=== PATIENT | male | born 1980 | race Caucasian/White ===

== ENCOUNTER 2024-11-26 06:31 | Observation (INO) ==
--- NOTE | 2024-08-03 11:23 | PAT Medication Instructions ---
Medication Instructions Date of Service August 03, 2024 Home Medications Medication Instructions Recorded budesonide-formoterol HFA 80 2 puff inhalation BID #10.2 grams 10/28/23 mcg-4.5 mcg/actuation aerosol inhaler (Symbicort) ezetimibe 10 mg tablet (Zetia) 10 mg PO DAILY #90 tabs 10/28/23 ddnfecok-hvevuqnaj-xciigswrr 3.5 4 drp otic (ear) Q8H 10 days #10 mL 10/29/23 mg-10,000 unit/mL-1 % ear drops,susp metoprolol succinate 50 mg 50 mg PO BID #180 tabs 03/15/24 tablet,extended release 24 hr azelastine 137 mcg (0.1 %) nasal 2 spray intranasal BID #30 mL 06/07/24 spray fluticasone propionate 50 2 spray intranasal DAILY Allergic 06/07/24 mcg/actuation nasal Rhinitis #16 grams spray,suspension ipratropium bromide 21 mcg (0.03 See Rx Instructions intranasal TID 06/07/24 %) nasal spray PRN allergy symptoms #30 mL tadalafil 5 mg tablet (Cialis) See Rx Instructions PO DAILY PRN 06/23/24 sexual activity #60 tabs cyclobenzaprine 10 mg tablet 10 mg PO TID PRN muscle spasm #90 07/26/24 tabs Medication List: cetirizine 10 mg capsule (Zyrtec) 10 mg PO DAILY PRN Allergy Symptoms loratadine-pseudoephedrine ER 10 mg-240 mg tablet,extended [id number] (Claritin-D 24 Hour) 1 tab PO QAM fexofenadine-pseudoephedrine ER 180 mg-240 mg tablet,ext.release 24 hr (Vivian- D 24 Hour) 1 tab PO QAM budesonide-formoterol HFA 80 mcg-4.5 mcg/actuation aerosol inhaler (Symbicort) 2 puff inhalation BID ezetimibe 10 mg tablet (Zetia) 10 mg PO DAILY eirburiv-odhqplrup-pmukaohzw 3.5 mg-10,000 unit/mL-1 % ear drops,susp 4 drp otic (ear) Q8H metoprolol succinate 50 mg tablet,extended release 24 hr 50 mg PO BID azelastine 137 mcg (0.1 %) nasal spray 2 spray intranasal BID fluticasone propionate 50 mcg/actuation nasal spray,suspension 2 spray intranasal DAILY Allergic Rhinitis ipratropium bromide 21 mcg (0.03 %) nasal spray See Rx Instructions intranasal TID PRN allergy symptoms tadalafil 5 mg tablet (Cialis) See Rx Instructions PO DAILY PRN sexual activity cyclobenzaprine 10 mg tablet 10 mg PO TID PRN muscle spasm ciprofloxacin 0.3 %-dexamethasone 0.1 % ear drops,suspension 4 drp otic (ear) BID PRN ear infections escitalopram oxalate 5 mg tablet 5 mg PO HS lisinopril 20 mg tablet 20 mg PO QAM montelukast 10 mg tablet 10 mg PO HS MEDICATION INSTRUCTIONS: Continue as directed ciprofloxacin 0.3 %-dexamethasone 0.1 % ear drops,suspension 4 drp otic (ear) BID PRN ear infections azelastine 137 mcg (0.1 %) nasal spray 2 spray intranasal BID fluticasone propionate 50 mcg/actuation nasal spray,suspension 2 spray intranasal DAILY Allergic Rhinitis qsftaman-qiqclyvwd-yiotnrgtx 3.5 mg-10,000 unit/mL-1 % ear drops,susp 4 drp otic (ear) Q8H budesonide-formoterol HFA 80 mcg-4.5 mcg/actuation aerosol inhaler (Symbicort) 2 puff inhalation BID ipratropium bromide 21 mcg (0.03 %) nasal spray See Rx Instructions intranasal TID PRN allergy symptoms DO NOT take the morning of surgery lisinopril 20 mg tablet 20 mg PO QAM cetirizine 10 mg capsule (Zyrtec) 10 mg PO DAILY PRN Allergy Symptoms loratadine-pseudoephedrine ER 10 mg-240 mg tablet,extended [id number] (Claritin-D 24 Hour) 1 tab PO QAM fexofenadine-pseudoephedrine ER 180 mg-240 mg tablet,ext.release 24 hr (Vivian- D 24 Hour) 1 tab PO QAM tadalafil 5 mg tablet (Cialis) See Rx Instructions PO DAILY PRN sexual activity Take morning of surgery With a small sip of water, OTHERWISE NOTHING TO EAT OR DRINK AFTER MIDNIGHT: metoprolol succinate 50 mg tablet,extended release 24 hr 50 mg PO BID cyclobenzaprine 10 mg tablet 10 mg PO TID PRN muscle spasm ezetimibe 10 mg tablet (Zetia) 10 mg PO DAILY Take evening before surgery escitalopram oxalate 5 mg tablet 5 mg PO HS montelukast 10 mg tablet 10 mg PO HS metoprolol succinate 50 mg tablet,extended release 24 hr 50 mg PO BID cyclobenzaprine 10 mg tablet 10 mg PO TID PRN muscle spasm Other Notes If you have any questions please call us at [phone] or [phone] or [phone] or [phone]
--- NOTE | 2024-08-16 14:11 | Anesthesiology Consultation ---
Date of Service August 16, 2024 Assessment & Plan (1) Encounter for pre-operative examination: malignant hyperthermia OR made aware of need for MH precautions. - Outpatient joint assessment: Patient is currently scheduled for inpatient pathway. If re-evaluated and patient/surgeon requests outpatient pathway, patient is not a candidate for outpatient joint program. Chart Review Chart Review: Acceptable Risk for Surgery and Patient seen in Pre Admission Testing Teaching & Discussion Pre-Anesthesia Teaching/Discussion Notes: Instructed NPO after midnight before surgery, except medications with 15 cc of water. Medication instructions provided according to the PAT guidelines. History Surgery Operation Date: 09/13/24 07:00 Proposed Procedures p Left Total Knee Arthroplasty - Roberto Coffey DO Height/Weight Height: 6 ft 1 in Weight: 176.1 kg Allergies Allergy/AdvReac Type Severity Reaction Status Date / Time trazodone AdvReac SUICIDIAL Verified 07/29/24 13:14 Medications Home Medications Medication Instructions Recorded Confirmed Last Taken cetirizine 10 mg capsule (Zyrtec) 10 mg PO DAILY PRN Allergy Symptoms 07/15/22 07/29/24 Unknown loratadine-pseudoephedrine ER 10 1 tab PO QAM 07/15/22 07/29/24 Unknown mg-240 mg tablet,extended [id number] (Claritin-D 24 Hour) fexofenadine-pseudoephedrine ER 1 tab PO QAM 01/02/23 07/29/24 Unknown 180 mg-240 mg tablet,ext.release 24 hr (Vivian-D 24 Hour) budesonide-formoterol HFA 80 2 puff inhalation BID #10.2 grams 10/28/23 07/29/24 Unknown mcg-4.5 mcg/actuation aerosol inhaler (Symbicort) ezetimibe 10 mg tablet (Zetia) 10 mg PO DAILY #90 tabs 10/28/23 07/29/24 Unknown ntfmikxc-qbvsipdch-pkdglzsqr 3.5 4 drp otic (ear) Q8H 10 days #10 mL 10/29/23 07/29/24 Unknown mg-10,000 unit/mL-1 % ear drops,susp metoprolol succinate 50 mg 50 mg PO BID #180 tabs 03/15/24 07/29/24 Unknown tablet,extended release 24 hr azelastine 137 mcg (0.1 %) nasal 2 spray intranasal BID #30 mL 06/07/24 07/29/24 Unknown spray fluticasone propionate 50 2 spray intranasal DAILY Allergic 06/07/24 07/29/24 Unknown mcg/actuation nasal Rhinitis #16 grams spray,suspension ipratropium bromide 21 mcg (0.03 See Rx Instructions intranasal TID 06/07/24 07/29/24 Unknown %) nasal spray PRN allergy symptoms #30 mL tadalafil 5 mg tablet (Cialis) See Rx Instructions PO DAILY PRN 06/23/24 07/29/24 Unknown sexual activity #60 tabs cyclobenzaprine 10 mg tablet 10 mg PO TID PRN muscle spasm #90 07/26/24 07/29/24 Unknown tabs ciprofloxacin 0.3 %-dexamethasone 4 drp otic (ear) BID PRN ear 07/29/24 07/29/24 Unknown 0.1 % ear drops,suspension infections escitalopram oxalate 5 mg tablet 5 mg PO HS 07/29/24 07/29/24 Unknown lisinopril 20 mg tablet 20 mg PO QAM 07/29/24 07/29/24 Unknown montelukast 10 mg tablet 10 mg PO HS 07/29/24 07/29/24 Unknown Past Medical History Medical History (Updated 08/16/24 @ 14:48 by Adriana Rothman PA-C) Anxiety Chronic rhinitis Chronic sinusitis Conductive hearing loss, bilateral Elevated hemoglobin A1c Family history of malignant hyperthermia "everyone in family has tested positive" History of palpitations f/u [place] cardio, put on lexapro for anxiety attacks HTN (hypertension), benign controlled, stable per pt Hx of gastroesophageal reflux (GERD) for about 2 weeks, made diet changes and no issues since Malignant hyperthermia Temperature spiked when he was 7 years old, spent 3 days in hospital Seasonal allergies Patient denies h/o stroke, seizures, heart attack, heart failure, blood clots/DVTs or blood transfusions. Exercise / Class Metabolic Activity II 4-5 Yardwork/Stairs/Walk up hill (denies chest discomfort or shortness of breath with one flight of stairs) Past Family History Family History Father Lung cancer Brain cancer Grandfather Myocardial infarction Denies family history of Ovarian cancer Prostate cancer Diabetes Breast cancer Colorectal cancer Hypertension Past Surgical History Surgical History (Updated 08/16/24 @ 14:49 by Adriana Rothman PA-C) H/O hand surgery left History of tympanoplasty of left ear History of tympanoplasty of right ear S/P tonsillectomy and adenoidectomy Status post myringotomy with tube placement of both ears multiple Past Anesthesia History Malignant Hyperthermia History of PONV No Hx of PONV and No Hx of Motion Sickness Social History Smoking Status: Former smoker Do You Dip or Chew Tobacco: No Smoking End Date: 2021 Hx Alcohol Use: Yes Alcohol type: beer and hard liquor alcohol intake frequency: holidays/special occasions only Hx Substance Use: No substance use type: does not use Review of Systems Snoring, denies witnessed apneas. Patient denies chest pain, shortness of breath, dyspnea on exertion, fever, chills, cough, wheezing, or palpitations. Physical Exam Vital Signs Vitals BP 147/88 P 76 TEMP 98.3 SP02 95% on RA RESP 17 Physical Patient resting comfortably in chair in no acute distress, alert and oriented, responding appropriately throughout visit Full cervical extension range of motion without pain TMD < 3 finger breadths Mallampati Score 3 Dentition: intact, denies chipped or loose teeth, caps/crowns, implants or bridges Lungs: normal respiratory effort. Good air movement, clear throughout to auscultation, no adventitious breath sounds Cardiac: regular rate and rhythm, no murmurs noted Carotid arteries: negative bruit bilat Lab Results Anesthesia Preop Results Results Anesthesia Widget: WBC 8.85 K/ul (4.8-10.8) 08/16/24 Hgb 14.9 g/dl (14.0-18.0) 08/16/24 Hct 44.5 % (42.0-52.0) 08/16/24 Plt 278 K/uL (130-400) 08/16/24 Na 139 mmol/L (136-145) 08/16/24 K 4.2 mmol/L (3.5-5.1) 08/16/24 Cl 104 mmol/L (98-107) 08/16/24 CO2 30 mmol/L (21-32) 08/16/24 BUN 19 mg/dl (6-23) 08/16/24 Creat 1.03 mg/dl (0.6-1.4) 08/16/24 Glucose Level 114 mg/dl (70-99(Fasting)) H 08/16/24 PT 10.3 Seconds (9.0-12.0) 08/16/24 PTT 27 Seconds (21-31) 08/16/24 INR 0.9 (0.9-1.1) 08/16/24 HA1c 5.4 % (4.5-5.6) 08/16/24 Blood Type A Positive 08/16/24 Antibody Screen NEGATIVE 08/16/24 Testing Electrocardiogram Date: 08/16/24 NSR, rate 73 bpm Chest X-Ray Date: 08/16/24 No acute findings. Echocardiogram Date: 06/27/23 EF 65-70% Normal LV wall motion Mildly dilated LA Mild aortic root dilatation No significant valve pathology
--- NOTE | 2024-11-24 07:36 | History & Physical Report ---
Date of Service November 24, 2024 History of Present Illness Chief Complaint: Osteoarthritis of the left knee. Primary Care Provider: Suzie Bundy MD Yordy is a pleasant 43-year-old male who has been dealing with chronic increasing left knee pain. He has never had any surgeries of his left knee. X-rays and clinical examination have been diagnostic for advanced osteoarthritis of his left knee. He has done physical therapy. He has done multiple injections including viscosupplementation. He has been wearing a knee brace. It is to the point where he cannot work. After failing conservative treatment, he has elected proceed with a left total knee arthroplasty. Allergies Allergy/AdvReac Type Severity Reaction Status Date / Time trazodone AdvReac SUICIDIAL Verified 11/18/24 14:38 Home Medications Medication Instructions Recorded Confirmed Type cetirizine 10 mg capsule (Zyrtec) 10 mg PO QAM Allergy Symptoms 07/15/22 11/18/24 History fexofenadine-pseudoephedrine ER 1 tab PO QAM PRN allergies 01/02/23 11/18/24 History 180 mg-240 mg tablet,ext.release 24 hr (Vivian-D 24 Hour) metoprolol succinate 50 mg 50 mg PO BID #180 tabs 03/15/24 11/18/24 Rx tablet,extended release 24 hr azelastine 137 mcg (0.1 %) nasal 2 spray intranasal BID #30 mL 06/07/24 11/18/24 Rx spray ipratropium bromide 21 mcg (0.03 See Rx Instructions intranasal TID 06/07/24 11/18/24 Rx %) nasal spray PRN allergy symptoms #30 mL cyclobenzaprine 10 mg tablet 10 mg PO TID PRN muscle spasm #90 07/26/24 11/18/24 Rx tabs escitalopram oxalate 5 mg tablet 5 mg PO HS 07/29/24 11/18/24 History lisinopril 20 mg tablet 20 mg PO QAM 07/29/24 11/18/24 History montelukast 10 mg tablet 10 mg PO HS 07/29/24 11/18/24 History budesonide-formoterol HFA 80 2 puff inhalation BID PRN allergy 09/06/24 11/18/24 History mcg-4.5 mcg/actuation aerosol attack inhaler (Symbicort) loratadine 10 mg tablet 10 mg PO QPM 09/06/24 11/18/24 History multivitamin 1 tab PO QAM 09/06/24 11/18/24 History fluticasone propionate 50 2 spray intranasal DAILY Allergic 10/26/24 11/18/24 Rx mcg/actuation nasal Rhinitis #16 grams spray,suspension diphenhydramine 25 2 tab PO HS PRN Pain 11/18/24 11/18/24 History mg-acetaminophen 500 mg tablet (Acetaminophen PM Extra Strength) ezetimibe 10 mg tablet (Zetia) 10 mg PO QAM 11/18/24 11/18/24 History ibuprofen 200 mg tablet 400 mg PO BID PRN Pain 11/18/24 11/18/24 History tadalafil 5 mg tablet (Cialis) 5 mg PO QAM 11/18/24 11/18/24 History Past Med/Surg History Problem List (Updated 11/18/24 @ 14:58 by Kamini Hoskins, RN) Open wound of plantar aspect of right foot Encounter for examination following treatment at hospital Metabolic syndrome Chronic rhinitis Conductive hearing loss, bilateral Carpal tunnel syndrome on right Palpitations Anxiety Hyperlipidemia Obesity Malignant hyperthermia Seasonal allergies Chronic sinusitis HTN (hypertension), benign Medical History (Updated 11/18/24 @ 14:58 by Kamini Hoskins, JESICA) Hyperlipidemia Conductive hearing loss, bilateral Family history of malignant hyperthermia "everyone in family has tested positive" Hx of gastroesophageal reflux (GERD) for about 2 weeks, made diet changes and no issues since Chronic sinusitis Chronic rhinitis Anxiety Seasonal allergies History of palpitations f/u [place] cardio, put on lexapro for anxiety attacks Malignant hyperthermia Temperature spiked when he was 7 years old, spent 3 days in hospital HTN (hypertension), benign controlled, stable per pt Surgical History History of tympanoplasty of right ear History of tympanoplasty of left ear Status post myringotomy with tube placement of both ears multiple H/O hand surgery left S/P tonsillectomy and adenoidectomy Family History (Updated 11/18/24 @ 14:53 by Kamini Hoskins, RN) Father Brain cancer Lung cancer Grandfather Myocardial infarction Mother Family history of malignant hyperthermia Family/Other Family history of malignant hyperthermia children Denies family history of Ovarian cancer Prostate cancer Diabetes Breast cancer Colorectal cancer Hypertension Social History Smoking Status: Former smoker Tobacco Type: Cigarettes Age Started Using Tobacco: 15; Age Quit Using Tobacco: 41; packs per day: 1; Second Hand Exposure: No; Do You Dip or Chew Tobacco: No; Hx Alcohol Use: Yes Alcohol type: beer and hard liquor Hx Substance Use: No Preferred Language: Albanian Communication Ability: Effective Acoustical Installer Required: No Beliefs That Will Affect Care: None marital status: Current Living Situation: Spouse and Family current occupational status: employed current occupation: technical support agent How many Children do You have: 5 Feels Safe at Home: Yes Childhood Exposure to Second-Hand Smoke: Yes Diet: regular caffeine: Yes (tea) Dental Care, Regularly: No Physical Activity Frequency: Does not Exercise Seatbelt Use: sometimes Sunscreen Use: Yes Assistive Devices: None Review of Systems All systems reviewed & are unremarkable except as noted in HPI & below. Physical Exam . Results & Data Results & Data Laboratory Results . Diagnostic Findings . PG Care Time/CCT Total # of Minutes Spent Total Time Spent with Patient: Total time spent is greater than 50% in coordination of care (as documented) at patient's floor/unit and/or counseling patient: Coding Level of Care Code None
[~2024-11-26 06:31] MED LIST: BUPIVACAINE 0.5 % 5 MG/1 ML PF 10ML VIAL ONE; ROPIVACAINE 0.5% 5 MG/ML 30 ML VIAL ONE
--- NOTE | 2024-11-26 06:33 | History & Physical Bridge Note ---
Date of Service November 26, 2024 History & Physical Bridge Note I have examined the patient, reviewed the History & Physical and in the interval since the performance of the History & Physical I have noted the following changes of clinical significance: no changes noted
[2024-11-26] MEDS ORDERED: KETOROLAC 30 MG/ML VIAL ONE (06:37)
[2024-11-26] MEDS ORDERED: KETAMINE HCL 10MG/ML SYR ONE (06:37)
[2024-11-26] MEDS ORDERED: PROPOFOL IV EMULSION 10 MG/ML 20 ML VIAL IV ONE ×2 (06:37→08:37)
[2024-11-26] MEDS ORDERED: MIDAZOLAM HCL 1 MG/ML 2ML VIAL ONE ×2 (06:37→07:46)
[2024-11-26] MEDS ORDERED: LIDOCAINE 2% 2 ML VIAL/AMP(20MG/ML) INFIL ONE (06:37)
[2024-11-26] MEDS ORDERED: ONDANSETRON INJ 2 MG/ML 2 ML VIAL ONE ×2 (06:37→06:41)
[2024-11-26] MEDS ORDERED: GLYCOPYRROLATE 0.2 MG/ML VIAL ONE (06:37)
[2024-11-26] MEDS ORDERED: PHENYLEPHRINE 100MCG/ML 5ML SYR ONE (06:38)
[2024-11-26] MEDS ORDERED: ePHEDrine sulfate 50 MG/5 ML SYR ONE (06:38)
[2024-11-26] MEDS ORDERED: DexMEDEtomidine HCL IV 100 MCG/ML VIAL IV ONE (06:46)
[2024-11-26] MEDS: LR 500ML BOLUS, THEN 15ML/HR IV SCH (07:08)
[2024-11-26] MEDS: ACETAMINOPHEN 500 MG TAB PO SCH ×2 (07:09→14:05)
[2024-11-26] MEDS: dexAMETHasone**PF** 10 MG/ML VIAL IV SCH (07:09)
[2024-11-26] MEDS: FAMOTIDINE 20 MG TAB PO SCH (07:09)
[2024-11-26] MEDS: GABAPENTIN 900 MG DOSE PO SCH (07:09)
[2024-11-26] MEDS: LR 60ML/HR IV SCH (07:10)
[2024-11-26] MEDS ORDERED: ONDANSETRON INJ 2 MG/ML 2 ML VIAL IV PRN ×2 (07:34→11:22)
[2024-11-26] MEDS ORDERED: ePHEDrine sulfate 50 MG/ML AMP IV PRN (07:34)
[2024-11-26] MEDS ORDERED: ATROPINE SULFATE 0.1 MG/ML 10ML SYR IV PRN (07:34)
[2024-11-26] MEDS ORDERED: fentaNYL citrate PF 100 MCG/2 ML VIAL IV PRN (07:34)
[2024-11-26] MEDS: TRANEXAMIC ACID 1,000 MG **IV Pre-op IV SCH (07:36)
[2024-11-26] MEDS: ceFAZolin 3000MG 3,000 MG/72.5 ML BAG IV SCH (07:55)
[2024-11-26] MEDS: ORTHO JOINT ANESTHETIC ONE (08:33)
[2024-11-26] MEDS: ROPIV 0.5% 246mg, Ketorolac 30mg, EPINEPHrine 0.5mg in NSS INFIL SCH (08:57)
[2024-11-26] MEDS: TRANEXAMIC ACID 1,000 MG **IV Intra-op IV SCH (09:10)
--- NOTE | 2024-11-26 09:20 | Operative Report ---
PG Post Operative Report Pre & Post Diagnosis Operation Date: 11/26/24 08:00 Pre-Op Diagnosis: Osteoarthritis of the left knee Post-Op Diagnosis: Osteoarthritis of the left knee I identified the patient and participated in the time-out.: Yes Procedure Operation Date: 11/26/24 08:00 Actual Procedures p Left Total Knee Arthroplasty(Left) - Roberto Coffey DO Surgeon Roberto Coffey DO Creative Coordinator Shimon Atkinson PA-C Estimated Blood Loss 100 Findings Consistent with Post-Op Diagnosis Specimens Left femoral tibial bone Description of Procedure Implants used: I used a Tyrell Persona total knee arthroplasty system with a size 11 PS standard femur, G tibia, 34 oval patella, and a size 14 CPS polyethylene bearing. All components were cemented in place with Biomet cement. Yordy arrived [facility] for the above procedure. He was seen in the preoperative holding area and the operative extremity was identified and signed. He was given a preoperative antibiotic, TXA, a spinal anesthetic and an adductor nerve block. He was taken back to the operating room and laid on the table in supine position. He was given basic sedation. The operative knee was then prepped and draped in sterile fashion. A timeout was done, and the patient and the operative extremity was properly identified. A midline incision was made directly over the patella. Dissection was taken down to the extensor mechanism. A medial parapatellar arthrotomy was used. The medial retinaculum was released and the fat pad was mostly excised. The knee was flexed and the ACL, PCL, and meniscus were removed. A drill was sent down the center of the femoral canal followed by an intramedullary tam. Off that tam a distal femoral cutting block was placed. 9 mm was resected off the distal femur at 5 of valgus. A posterior referencing AP sizing guide was then placed on the distal femur. The femur measured to be a size 11. 2 drill holes were placed in 3 of external rotation. A 4-in-1 cutting block was then impacted into place. Anterior, posterior, and chamfer cuts were then made. The proximal tibia was then exposed. An external tibial alignment guide was placed. A tibial cut guide was then anchored in place and the proximal tibia was then resected. The posterior aspect of the knee was then opened up and any additional meniscus fragments and osteophytes were removed. The tibia measured to be a size G. The tibial plate was then placed in the appropriate rotation and the tibia was drilled and punched. Trial components were then placed. I used a size 14 CPS polyethylene insert. The knee was brought through a full range of motion and felt to be stable. The peg holes for the femoral component were then drilled. The patella was then everted and 9 mm was resected off the posterior aspect of the patella. The patella measured to be a size 34 oval. 3 peg holes were then drilled. A trial patella was placed. The knee was once again brought through a full range of motion and felt to be stable. Trial components were then removed. The surrounding soft tissues were injected with 100 cc of an orthopedic pain control cocktail. All components were then cemented into place with Biomet cement. The final polyethylene insert was then snapped into place. Once cement was dry the tourniquet was deflated. Hemostasis was obtained. A dilute betadyne lavage was then done for 3 minutes. The joint was then irrigated with normal saline solution. The medial parapatellar arthrotomy was then closed with #1 Vicryl suture. The skin was closed with 2-0 Vicryl, 3-0V lock suture, and cory. A soft compressive dressing was placed. He was then transferred to a hospital bed and taken to the postanesthesia care unit in stable condition. He tolerated the procedure well. Shimon Atkinson PA-C, was present for the entire procedure. He was critical for patient positioning, prepping, draping, retraction exposure, wound closure and application of sterile dressing. I attest to the content of the Intraoperative Record and any orders documented therein. Any exceptions are noted below.
--- NOTE | 2024-11-26 10:09 | XRay Report ---
XR knee LT 1 or 2V routine CLINICAL HISTORY: Surgical Post Op COMPARISON: None FINDINGS: Left knee prosthesis shows no hardware complication. There is expected soft tissue gas. IMPRESSION: Unremarkable postoperative exam. ACT 112: Negative or not required by law. Electronically signed by: Ananda Carranza M.D. 11/26/2024 10:08 AM
--- NOTE | 2024-11-26 11:02 | Anesthesiology Progress Note ---
Date of Service November 26, 2024 Anesthesia Post Procedure Vital Signs Vital Signs: Temp Pulse Pulse Resp BP Pulse Ox O2 Del Method 11/26/24 10:55 97.9 F 74 14 135/77 95 Room Air 11/26/24 10:45 64 14 129/77 92 Room Air 11/26/24 10:35 76 15 126/86 95 Room Air 11/26/24 10:25 68 12 121/69 93 Room Air 11/26/24 10:15 65 13 135/73 96 Room Air 11/26/24 10:05 70 18 115/68 94 Room Air 11/26/24 09:55 75 13 126/60 93 Room Air 11/26/24 09:49 98.1 F 78 16 115/69 95 Room Air 11/26/24 07:01 98.4 F 74 20 147/110 H 95 Room Air Transfer of Care Handoff Completed per policy Notes Mental Status: alert / awake / arousable and participated in evaluation Patient Amnestic to Procedure: Yes Nausea / Vomiting: adequately controlled Pain: adequately controlled Airway Patency, RR, SpO2: stable & adequate BP & HR: stable & adequate Hydration State: stable & adequate Neuraxial Anesthesia: was administered and sensory block is resolving Anesthetic Complications: no major complications apparent and Pt Satisfied with anesthetic care
[2024-11-26] MEDS ORDERED: diphenhydrAMINE Capsule 25 MG CAP PO PRN (11:22)
[2024-11-26] MEDS ORDERED: NALOXONE HCL 0.4 MG/1 ML VIAL/CARP IV PRN (11:22)
[2024-11-26] MEDS ORDERED: METOCLOPRAMIDE HCL INJ 5 MG/ML 2 ML VIAL IV PRN (11:22)
[2024-11-26] MEDS ORDERED: bisacodyL 10 MG SUPP PR PRN (11:22)
[2024-11-26] MEDS ORDERED: CYCLOBENZAPRINE HCL 10 MG TAB PO PRN (11:22)
[2024-11-26] MEDS ORDERED: MAGNESIUM HYDROXIDE SUSP 30 ML UDC PO PRN (11:22)
[2024-11-26] MEDS ORDERED: TAMSULOSIN HCL 0.4 MG CAP PO PRN (11:22)
[2024-11-26] MEDS: SODIUM CHLORIDE 0.9% 1,000 ML IV SCH (11:53)
[2024-11-26] MEDS: KETOROLAC TROMETHAMINE 15 MG/ML VIAL IV SCH (12:28)
[2024-11-26] MEDS: oxyCODONE HCL IR 5 MG TAB (IMMEDIATE RELEASE) PO PRN (14:39)
[2024-11-26] MEDS: HYDROmorphone INJ 0.5 MG/0.5 ML SYR IV PRN (16:34)
[2024-11-26] MEDS: ceFAZolin 2000MG 2,000 MG/15 ML SYR IV SCH (17:00)
[2024-11-26] MEDS: ASPIRIN 81 MG ECTAB PO SCH (20:07)
[2024-11-26] MEDS: LORATADINE 10 MG TAB PO SCH (20:07)
[2024-11-26] MEDS: SENNA 8.6 MG TAB PO SCH (20:08)
[2024-11-26] MEDS: ESCITALOPRAM OXALATE 10 MG TAB PO SCH (20:08)
[2024-11-26] MEDS: METOPROLOL SUCC 50MG EXT REL TAB PO SCH (20:08)
[2024-11-26] MEDS: MONTELUKAST SODIUM 10 MG TABLET PO SCH (20:08)
[2024-11-26] MEDS: DOCUSATE SODIUM 100 MG CAP PO SCH (20:08)
--- NOTE | 2024-11-27 07:07 | Orthopedic Progress Note ---
Date of Service November 27, 2024 Assessment & Plan (1) Status post left knee replacement: Overall he is doing very well. He is not having much pain in the left knee. He will be seen by physical therapy today for ambulation and range of motion exercises. The nursing staff can change the Haris wrap after physical therapy. He can be discharged to home later today. He will follow-up with orthopedics in 2 weeks. Rob Scales was seen and examined at bedside this morning. Overall is doing very well. He is not having much pain in the left knee. He has been up and ambulated to the bathroom. He has no complaints. Review of Systems All systems reviewed & are unremarkable except as noted in HPI & below. Physical Exam On physical exam of the left knee, the dressing is clean and dry. His leg is out full extension. He has active dorsiflexion plantarflexion of his left ankle.. Results & Data Results & Data Laboratory Results . Diagnostic Findings Postoperative x-rays of the left knee show the prosthesis to be in anatomic alignment without any evidence of fracture complication, or loosening.. PG Care Time/CCT Total # of Minutes Spent Total Time Spent with Patient: Total time spent is greater than 50% in coordination of care (as documented) at patient's floor/unit and/or counseling patient: Coding Level of Care Code 44114 Post Operative Follow-Up Diagnoses Status post left knee replacement Z96.652
[2024-11-27 07:40] VITALS: BP 153/92; PULSE 80; RESP 18; TEMP 97.9; O2SAT 99
[2024-11-27] MEDS: dexAMETHasone 4 MG TAB PO SCH (09:57)
[2024-11-27] MEDS: MULTIVITAMIN TAB PO SCH (09:58)
[2024-11-27] MEDS: lisinopril 20 MG TAB PO SCH (09:58)
[2024-11-27] MEDS: EZETIMIBE 10 MG TAB PO SCH (09:58)
== END 2024-11-27 11:50 | disposition home or self-care (01) ==
LOC: 3N 06:31 → ASU 06:31